=== PATIENT | male | born 1980 | race Hispanic/Latino ===

== ENCOUNTER 2022-04-08 10:29 | Outpatient (CLI) | payer BC ==
[2022-04-08 11:10] LABS: #Eosinphils 0.1 10x3/uL (0.0-0.5); #Monocytes 0.5 10x3/uL (0.0-1.1); #Neutrophils 3.1 10x3/uL (1.5-8.4); %Basophils 0.6 % (0.0-2.0); %Eosinophils 1.3 % (0.0-6.0); %Lymphocytes 40.7 % (18.0-47.0); %Monocytes 7.8 % (0.0-10.0); %Neutrophils 49.4 % (40.0-75.0); Hemoglobin 15.1 g/dL (13.5-17.5); Mean Corpuscular HGB CONC 34.7 g/dL (32.0-36.0); Mean Corpuscular Hemoglobin 29.5 pg (27.0-33.0); Mean Corpuscular Volume 85.1 fl (81.2-95.1); Mean Platelet Volume 8.8 fl (7.4-10.4); Platelet Count 261 10x3/uL (150-450); RBC Distribution Width 12.5 % (11.5-14.5); Red Blood Cell (RBC) Count 5.11 10x6/uL (4.32-5.72); White Blood Cell (WBC) Count 6.3 10x3/uL (3.5-10.5)
[2022-04-08 11:17] LABS: Anion Gap 13 mmol/L (10-20); BUN (Urea Nitrogen) 12 mg/dL (8.9-20.6); Calc. Creatinine Clearance 0 mL/min (70-130); Calcium 9.3 mg/dL (7.8-10.44); Carbon Dioxide 27 mmol/L (22-29); Chloride 105 mmol/L (98-107); Glucose 89 mg/dL (70-105); Potassium 4.2 mmol/L (3.5-5.1); Sodium 141 mmol/L (136-145)
[2022-04-09 00:18] LABS: SARS-CoV-2 PCR by NAA Not Detected (NotDetected)
== END 2022-04-08 10:30 | disposition home or self-care (01) ==
LOC: LABBT 10:29
PROVIDERS: ATTEND Orthopaedic Surgery Hand Surgery
DX: Z01.812 Encounter for preprocedural laboratory examination (principal); D17.22 Benign lipomatous neoplasm of skin and subcutaneous tissue of left arm; Z20.822 Contact with and (suspected) exposure to COVID-19
CPT/HCPCS: 80048; 85025; U0003; U0005

== ENCOUNTER 2022-04-11 06:15 | Day surgery (SDC) | payer BC ==
[2022-04-09 12:09] VITALS: BMI 28.0
[2022-04-11] MEDS ORDERED: Neomycin-Polymyxin 1 ML AMP ONE (07:44)
[2022-04-11] MEDS ORDERED: Bacitracin Zinc Ointment 30 gm TUBE ONE (07:44)
[2022-04-11] MEDS ORDERED: Betamet Acet/Betamet Na Ph 30 MG/5 ML VIAL ONE (07:44)
[2022-04-11] MEDS ORDERED: Bupivacaine PF 0.5% 30 ML VIAL ONE (07:44)
[2022-04-11] MEDS ORDERED: Midazolam HCl 2 mg/2 ml Vial ONE (09:06)
[2022-04-11] MEDS ORDERED: fentaNYL Citrate/PF 100 MCG/2 ML SYRINGE ONE (09:07)
[2022-04-11] MEDS ORDERED: CEFAZOLIN 2 GM VIAL ONE (09:11)
[2022-04-11] MEDS ORDERED: Sodium Chloride 0.9% 100 ML ONE (09:11)
[2022-04-11] MEDS ORDERED: Dexamethasone 20 MG/5 ML VIAL ONE (09:20)
[2022-04-11] MEDS ORDERED: Ondansetron PF 4 MG/2 ML Vial ONE (09:20)
[2022-04-11] MEDS ORDERED: Lidocaine 1% PF 5 ML VIAL ONE (09:20)
[2022-04-11] MEDS ORDERED: Ketorolac Tromethamine 30 MG/ML VIAL ONE (09:20)
[2022-04-11] MEDS ORDERED: PROPOFOL 200 MG/20 ML VIAL ONE (09:20)
== END 2022-04-11 13:05 | disposition home or self-care (01) ==
LOC: SDC 06:15
PROVIDERS: ATTEND Orthopaedic Surgery Hand Surgery
PROC: 0JBK0ZZ Excision of Left Hand Subcutaneous Tissue and Fascia, Open Approach (ICD-10-PCS; principal; 2022-04-11)
DX: L72.0 Epidermal cyst (principal)
CPT/HCPCS: 88304; J0702; J1100; J1885; J2250; J2405; J2704; J3490; S0020

== ENCOUNTER 2024-04-07 11:00 | Day surgery (SDC) | payer OTHER ==
[2024-04-06 11:34] VITALS: BMI 29.0
[2024-04-07] MEDS ORDERED: PROPOFOL 40 ML ONE (12:36)
[2024-04-07] MEDS ORDERED: Lidocaine 1% PF 5 ML VIAL ONE (12:36)
== END 2024-04-07 14:05 | disposition home or self-care (01) ==
LOC: SDC 11:00
PROVIDERS: ATTEND Internal Medicine Gastroenterology
PROC: 0DJD8ZZ Inspection of Lower Intestinal Tract, Via Natural or Artificial Opening Endoscopic (ICD-10-PCS; principal; 2024-04-07)
DX: Z12.11 Encounter for screening for malignant neoplasm of colon (principal); R19.5 Other fecal abnormalities; K57.30 Diverticulosis of large intestine without perforation or abscess without bleeding; K64.9 Unspecified hemorrhoids
CPT/HCPCS: J2704